=== PATIENT | female | born 1965 | race Caucasian/White ===

== ENCOUNTER 2017-01-14 15:50 | Inpatient (IN) ==
[2017-01-14] MEDS ORDERED: *HR* Midazolam HCl 5 MG/ML VIAL IVP ONE ×2 (16:13→18:30)
[2017-01-14] MEDS ORDERED: EPINEPHrine 1 MG in D5% in Water 250 ML IVC SCH (17:00)
[2017-01-14 17:08] LABS: Hematocrit 37.3 % (35.3-44.9); Hemoglobin 11.4 g/dL (11.5-15.4); Mean Corpuscular HGB Conc 30.6 g/dL (31.6-35.5); Mean Corpuscular Hemoglobin 29.8 pg (28.0-33.3); Mean Corpuscular Volume 97.6 fL (83.0-100.0); Mean Platelet Volume 8.9 fL (9.4-12.4); Platelet Count 279 K/mcL (140-400); Red Blood Count 3.82 M/mcL (3.82-4.97); Red Cell Distribution Width 12.3 % (11.5-14.5)
[2017-01-14 17:14] LABS: INR 1.1; Prothrombin Time 11.4 Seconds (9.4-12.1)
[2017-01-14 17:17] LABS: Activated Partial Thrombo Time 26.5 Seconds (26.0-36.0)
[2017-01-14 17:24] LABS: Alanine Aminotransferase 166 Units/L (0-55); Albumin 2.8 g/dL (3.5-5.0); Albumin/Globulin Ratio 0.8 (1.1-2.2); Alkaline Phosphatase 115 Units/L (38-126); Aspartate Amino Transferase 214 Units/L (5-34); BUN/Creatinine Ratio 18 (6-26); Bilirubin,Total 0.2 mg/dL (0.2-1.2); Blood Urea Nitrogen 9 mg/dL (7-20); Calcium 8.1 mg/dL (8.6-10.8); Carbon Dioxide 27 mEq/L (19-29); Chloride 98 mEq/L (98-109); Globulin 3.4 g/dL (2.4-3.5); Glucose 353 mg/dL (70-99); Osmolality,Calculated 297 (280-300); Sodium 137 mEq/L (136-145); Total Protein 6.2 g/dL (6.0-8.3); eGFR For African Americans > 60 (> 60); eGFR For Non-African Americans > 60 (> 60)
--- NOTE | 2017-01-14 17:33 | Emergency Department Note ---
Disposition Clinical Impression: Cardiac arrest Disposition: Admitted As Inpatient Condition: Critical Referrals: Deacon Hu MD [Primary Care Provider] - Forms: ED Satisfaction Letter CPR HPI - General Chief Complaint: ED Cardiac Arrest/CPR Stated Complaint: "heart" Source: EMS Nursing Notes Reviewed: Yes Vital Signs Reviewed: Yes - History of Present Illness HPI Narrative: Should arise and cardiac arrest. Per family report patient was having some difficulty breathing last night but it became much more severe today. EMS was dispatched and approximately 10 minutes prior to arrival merge department, patient with this bradycardic and unresponsive for them. Initiated CPR but no medications were administered. Upon arrival CPR was continued and epinephrine was started. After 3 rounds of epinephrine patient did have spontaneous return of circulation. There is no reported history of lung or heart problems. There is no reported history of clotting disorder. - Related Data Home Medications Medication Instructions Recorded Confirmed Alprazolam [Xanax 0.5 MG Tablet] 0.5 mg PO TID PRN 01/14/17 01/14/17 Cyanocobalamin (B-12) [Vitamin B12] mcg IM DAILY 01/14/17 Dextromethorphan HBr/Quinidine 1 each PO BID 01/14/17 01/14/17 [Nuedexta 20-10 mg Capsule] Dicyclomine [Dicyclomine HCl] 20 mg PO TID PRN 01/14/17 01/14/17 Naproxen Sodium [Anaprox Ds] 550 mg PO AD 01/14/17 01/14/17 Omeprazole [PriLOSEC] 20 mg PO DAILY 01/14/17 01/14/17 Ondansetron HCl [Zofran] 4 mg PO DAILY 01/14/17 01/14/17 Pharmanac 1 tab PO DAILY 01/14/17 01/14/17 Polyethylene Glycol 3350 17 gm PO DAILY 01/14/17 01/14/17 [Smoothlax] Riluzole [Rilutek] 50 mg PO BID 01/14/17 01/14/17 Sertraline [Zoloft] 100 mg PO DAILY 01/14/17 01/14/17 Allergies Allergy/AdvReac Type Severity Reaction Status Date / Time No Known Allergies Allergy Verified 01/14/17 18:58 Limitations: ROS unobtainable due to patients medical condition CPR PMH - Past Medical History Medical history: Reports: non-contributory, other Female Surgical history: Reports: no surgical history Psychiatric history: Reports: no psych history GY[employer] MECH[employer]IC history: Reports: non-contributory - Social History Smoking Status: Never smoker Alcohol use: Reports: none Drug use: Reports: none Physical Exam - General Limitations: altered mental status General appearance: other (Unresponsive) - Head Head exam: atraumatic - Eye Eye exam: Present: other (Pupils fixed and dilated) - ENT ENT exam: mucous membranes dry, TM's normal bilaterally - Neck Neck exam: Present: trachea midline. Absent: lymphadenopathy, thyromegaly - Chest Chest inspection: Present: other (Compressions being performed) - Respiratory Respiratory exam: Present: other (Lung sounds protect it with bagging but they are diminished) - Cardiovascular Cardiovascular exam: Present: other (No cardiac activity) - Abdominal Exam Abdominal exam: Present: soft, distention, diminished bowel sounds - Extremities Exam Extremities exam: Present: pedal edema - Back Exam Back exam: Present: other (limited) - Neurological Exam Neurological exam: Present: other (Limited Secondary to mental status) - Psychiatric Psychiatric exam: Present: other (Limited secondary to mental status) - Skin Skin exam: Present: dry, pallor Course Course Narrative: Upon arrival CPR was initiated. Patient received 3 rounds of epinephrine and compressions and had return of spontaneous circulation. Patient is receiving IV fluids and epinephrine for blood pressure and she is maintaining her circulation. Vital Signs Temperature 96.6 F L 01/14/17 15:59 Pulse Rate 144 01/14/17 15:59 Respiratory Rate 18 01/14/17 15:59 Blood Pressure 161/115 01/14/17 15:59 O2 Sat by Pulse Oximetry 99 01/14/17 15:59 Temperature 96.6 F L 01/14/17 15:59 Pulse Rate 93 01/14/17 19:10 Respiratory Rate 14 01/14/17 19:10 Blood Pressure 116/84 01/14/17 19:10 O2 Sat by Pulse Oximetry 94 01/14/17 19:10 Oxygen Delivery Oxygen Delivery Ventilator Cardiac Arrest/CPR - Differential Diagnosis Likely: acute massive pulmonary embolism, acute myocardial infraction, cardiac arrest, PEA, sudden cardiac , arrhythmia - Lab Data Lab results reviewed: Yes I reviewed the patient's lab results. Result diagrams: 01/14/17 16:56 01/14/17 16:56 Lab Results 01/14/17 01/14/17 01/14/17 Range/Units 16:56 16:56 16:56 WBC 21.6 H (4.3-11.1) K/mcL RBC 3.82 (3.82-4.97) M/mcL Hgb 11.4 L (11.5-15.4) g/dL Hct 37.3 (35.3-44.9) % MCV 97.6 (83.0-100.0) fL MCH 29.8 (28.0-33.3) pg MCHC 30.6 L (31.6-35.5) g/dL RDW 12.3 (11.5-14.5) % Plt Count 279 (140-400) K/mcL MPV 8.9 L (9.4-12.4) fL Seg Neutrophils % 80.0 % Band Neutrophils % 8.0 H (0-4) % Lymphocytes % 10.0 % Myelocytes % 2.0 H (0) % Neutrophils # 19.0 H (1.6-8.9) K/mcL Lymphocytes # 2.2 (0.6-4.6) K/mcL Toxic Granulation Present A (Not Present) PT 11.4 (9.4-12.1) Seconds INR 1.1 APTT 26.5 (26.0-36.0) Seconds ABG pH (7.32-7.45) pH Units ABG pCO2 (35-45) mmHg ABG pO2 (85-104) mmHg ABG HCO3 (21-27) mEQ/L ABG Total CO2 (20-26) mEq/L ABG O2 Saturation (95-98) % ABG Base Excess (-2.0 to 3.0) mEq/L Blood Gas Modality Inspired O2 % Sodium 137 (136-145) mEq/L Potassium 4.0 (3.5-4.5) mEq/L Chloride 98 (98-109) mEq/L Carbon Dioxide 27 (19-29) mEq/L BUN 9 (7-20) mg/dL Creatinine 0.51 L (0.57-1.11) mg/dL Est GFR ( Amer) > 60 (> 60) Est GFR (Non-Af Amer) > 60 (> 60) BUN/Creatinine Ratio 18 (6-26) Glucose 353 H (70-99) mg/dL Calculated Osmolality 297 (280-300) Lactic Acid (0.5-2.2) mmol/L Calcium 8.1 L (8.6-10.8) mg/dL Total Bilirubin 0.2 (0.2-1.2) mg/dL AST 214 H (5-34) Units/L ALT 166 H (0-55) Units/L Alkaline Phosphatase 115 (38-126) Units/L Troponin I (0-0.03) ng/mL Serum Total Protein 6.2 (6.0-8.3) g/dL Albumin 2.8 L (3.5-5.0) g/dL Globulin 3.4 (2.4-3.5) g/dL Albumin/Globulin Ratio 0.8 L (1.1-2.2) Urine Color (Yellow) Urine Clarity (Clear) Urine pH (5.0-8.0) pH Units Ur Specific Lipscomb (1.010-1.025) Urine Protein (Neg-Trace) mg/dL Urine Glucose (UA) (Normal) mg/dL Urine Ketones (Negative) mg/dL Urine Blood (Negative) Urine Nitrite (Negative) Urine Bilirubin (Negative) Urine Urobilinogen (Normal) mg/dL Ur Leukocyte Esterase (Negative) Urine Microscopic RBC (0-3) per hpf Urine Microscopic WBC (0-3) per hpf Ur Squamous Epith Cells (None-Few) per lpf Urine Bacteria (None-Few) per hpf Hyaline Casts (None-Few) per lpf Ur Culture Indicated? (NO) 01/14/17 01/14/17 01/14/17 Range/Units 16:56 16:56 17:05 WBC (4.3-11.1) K/mcL RBC (3.82-4.97) M/mcL Hgb (11.5-15.4) g/dL Hct (35.3-44.9) % MCV (83.0-100.0) fL MCH (28.0-33.3) pg MCHC (31.6-35.5) g/dL RDW (11.5-14.5) % Plt Count (140-400) K/mcL MPV (9.4-12.4) fL Seg Neutrophils % % Band Neutrophils % (0-4) % Lymphocytes % % Myelocytes % (0) % Neutrophils # (1.6-8.9) K/mcL Lymphocytes # (0.6-4.6) K/mcL Toxic Granulation (Not Present) PT (9.4-12.1) Seconds INR APTT (26.0-36.0) Seconds ABG pH (7.32-7.45) pH Units ABG pCO2 (35-45) mmHg ABG pO2 (85-104) mmHg ABG HCO3 (21-27) mEQ/L ABG Total CO2 (20-26) mEq/L ABG O2 Saturation (95-98) % ABG Base Excess (-2.0 to 3.0) mEq/L Blood Gas Modality Inspired O2 % Sodium (136-145) mEq/L Potassium (3.5-4.5) mEq/L Chloride (98-109) mEq/L Carbon Dioxide (19-29) mEq/L BUN (7-20) mg/dL Creatinine (0.57-1.11) mg/dL Est GFR ( Amer) (> 60) Est GFR (Non-Af Amer) (> 60) BUN/Creatinine Ratio (6-26) Glucose (70-99) mg/dL Calculated Osmolality (280-300) Lactic Acid 8.7 H* (0.5-2.2) mmol/L Calcium (8.6-10.8) mg/dL Total Bilirubin (0.2-1.2) mg/dL AST (5-34) Units/L ALT (0-55) Units/L Alkaline Phosphatase (38-126) Units/L Troponin I 0.01 (0-0.03) ng/mL Serum Total Protein (6.0-8.3) g/dL Albumin (3.5-5.0) g/dL Globulin (2.4-3.5) g/dL Albumin/Globulin Ratio (1.1-2.2) Urine Color Yellow (Yellow) Urine Clarity Clear (Clear) Urine pH 6.5 (5.0-8.0) pH Units Ur Specific Lipscomb 1.018 (1.010-1.025) Urine Protein 30 H (Neg-Trace) mg/dL Urine Glucose (UA) 500 H (Normal) mg/dL Urine Ketones Negative (Negative) mg/dL Urine Blood Negative (Negative) Urine Nitrite Negative (Negative) Urine Bilirubin Negative (Negative) Urine Urobilinogen Normal (Normal) mg/dL Ur Leukocyte Esterase Negative (Negative) Urine Microscopic RBC 0-3 (0-3) per hpf Urine Microscopic WBC 5-15 H (0-3) per hpf Ur Squamous Epith Cells Many H (None-Few) per lpf Urine Bacteria Few (None-Few) per hpf Hyaline Casts None Seen (None-Few) per lpf Ur Culture Indicated? YES A (NO) 01/14/17 Range/Units 18:05 WBC (4.3-11.1) K/mcL RBC (3.82-4.97) M/mcL Hgb (11.5-15.4) g/dL Hct (35.3-44.9) % MCV (83.0-100.0) fL MCH (28.0-33.3) pg MCHC (31.6-35.5) g/dL RDW (11.5-14.5) % Plt Count (140-400) K/mcL MPV (9.4-12.4) fL Seg Neutrophils % % Band Neutrophils % (0-4) % Lymphocytes % % Myelocytes % (0) % Neutrophils # (1.6-8.9) K/mcL Lymphocytes # (0.6-4.6) K/mcL Toxic Granulation (Not Present) PT (9.4-12.1) Seconds INR APTT (26.0-36.0) Seconds ABG pH 7.33 (7.32-7.45) pH Units ABG pCO2 58 H (35-45) mmHg ABG pO2 91 (85-104) mmHg ABG HCO3 30.6 H (21-27) mEQ/L ABG Total CO2 32.4 H (20-26) mEq/L ABG O2 Saturation 96 (95-98) % ABG Base Excess 3.6 H (-2.0 to 3.0) mEq/L Blood Gas Modality ASSIST CONTROL Inspired O2 100 % Sodium (136-145) mEq/L Potassium (3.5-4.5) mEq/L Chloride (98-109) mEq/L Carbon Dioxide (19-29) mEq/L BUN (7-20) mg/dL Creatinine (0.57-1.11) mg/dL Est GFR ( Amer) (> 60) Est GFR (Non-Af Amer) (> 60) BUN/Creatinine Ratio (6-26) Glucose (70-99) mg/dL Calculated Osmolality (280-300) Lactic Acid (0.5-2.2) mmol/L Calcium (8.6-10.8) mg/dL Total Bilirubin (0.2-1.2) mg/dL AST (5-34) Units/L ALT (0-55) Units/L Alkaline Phosphatase (38-126) Units/L Troponin I (0-0.03) ng/mL Serum Total Protein (6.0-8.3) g/dL Albumin (3.5-5.0) g/dL Globulin (2.4-3.5) g/dL Albumin/Globulin Ratio (1.1-2.2) Urine Color (Yellow) Urine Clarity (Clear) Urine pH (5.0-8.0) pH Units Ur Specific Lipscomb (1.010-1.025) Urine Protein (Neg-Trace) mg/dL Urine Glucose (UA) (Normal) mg/dL Urine Ketones (Negative) mg/dL Urine Blood (Negative) Urine Nitrite (Negative) Urine Bilirubin (Negative) Urine Urobilinogen (Normal) mg/dL Ur Leukocyte Esterase (Negative) Urine Microscopic RBC (0-3) per hpf Urine Microscopic WBC (0-3) per hpf Ur Squamous Epith Cells (None-Few) per lpf Urine Bacteria (None-Few) per hpf Hyaline Casts (None-Few) per lpf Ur Culture Indicated? (NO) - Radiology Data Radiology results reviewed: Yes I reviewed the patient's radiology results. Chest CTA 01/14/17 16:10 IMPRESSION: No pulmonary emboli. Scattered patchy ground-glass opacities within the upper lobes predominantly, with interlobular septal smooth thickening. There also scattered areas of patchy centrilobular pulmonary nodules, as well as extensive consolidative changes seen predominately in the lower lobes dependently as well as within the right posterior upper lobe. Some of these changes could be related to pulmonary edema, as well as possible alveolar hemorrhage. An atypical multi lobar pneumonia could also have a similar appearance. Multiple tiny foci of soft tissue gas in the base of the left neck in the supraclavicular region. Question if this may be related to attempted access. An intraosseous line is seen in the left humeral head. The endotracheal tube terminates just above the sienna, though directed towards the right mainstem bronchus. D/ / George Sparks MD / George Sparks MD Interpreting Provider: George Sparks MD Chest X-Ray 01/14/17 16:20 IMPRESSION: Endotracheal tube is low. Repositioning was discussed with the attending physician. Retraction of 2-3 cm had already been performed per physician. Perihilar airspace disease, pulmonary edema versus pneumonia or aspiration pneumonitis. Critical results were called by Dr. Fabrizio Chavez MD to Adolfo Maria on 01/14/2017 at 16:53. D/ / Fabrizio Chavez MD / Fabrizio Chavez MD Interpreting Provider: Fabrizio Chavez MD - EKG Data EKG attestation: Yes I reviewed and interpreted this EKG. EKG shows normal: sinus rhythm Rate: tachycardia Rhythm: NSR Critical Care Time Total Critical Care Time: 180 Attestation: Critical care performed: Time is exclusive of separately billable procedures. Time includes: direct patient care, patient reassessment, coordination of patient care, interpretation of data (laboratory data, radiology data, and respiratory data), review of patient's medical records, medical consultation and documentation of patient care. Procedures included in critical care time: Procedures excluded from critical care time:
[2017-01-14 17:39] LABS: Lymphocytes # 2.2 K/mcL (0.6-4.6); Toxic Granulation Present (Not Present)
[2017-01-14] MEDS: 0.9 % Sodium Chloride 1,000 ML IVC SCH (18:08)
[2017-01-14] MEDS ORDERED: *HR* Midazolam HCl 5 MG/5 ML VIAL IVP ONE (18:08)
[2017-01-14 18:15] LABS: ABG Base Excess 3.6 mEq/L (-2.0 to 3.0); ABG HCO3 30.6 mEQ/L (21-27); ABG Oxygen Saturation 96 % (95-98); ABG PCO2 58 mmHg (35-45); ABG PH 7.33 pH Units (7.32-7.45); ABG PO2 91 mmHg (85-104); ABG TCO2 32.4 mEq/L (20-26)
[2017-01-14 18:17] LABS: Blood Gas FiO2 100 %
[2017-01-14 18:19] LABS: Bilirubin,Urine Negative (Negative); Blood,Urine Negative (Negative); Clarity,Urine Clear (Clear); Color,Urine Yellow (Yellow); Glucose,Urine (UA) 500 mg/dL (Normal); Ketones,Urine Negative (Negative); Leukocyte Esterase,Urine Negative (Negative); Nitrite,Urine Negative (Negative); PH,Urine 6.5 pH Units (5.0-8.0); Protein,Urine 30 mg/dL (Neg-Trace); Specific Gravity,Urine 1.018 (1.010-1.025); Urobilinogen,Urine Normal (Normal)
[2017-01-14 18:21] LABS: Hyaline Casts,Urine None Seen per lpf (None-Few); RBC,Urine 0-3 per hpf (0-3); Squamous Epithelial Cell,Urine Many per lpf (None-Few)
[2017-01-14 18:31] LABS: Bacteria,Urine Few per hpf (None-Few)
[2017-01-14 20:20] LABS: Thyroid Stimulating Hormone 2.119 mcIU/mL (0.350-4.840)
[2017-01-14 20:33] LABS: Magnesium 1.7 mg/dL (1.6-2.6); Phosphorous 4.4 mg/dL (2.3-4.7)
[2017-01-14] MEDS ORDERED: 0.9 % Sodium Chloride 1,000 ML IVC ONE ×2 (20:33→22:39)
--- NOTE | 2017-01-14 20:33 | Internal Med History&Physical ---
<Sally Lockwood - Last Filed: 01/14/17 21:36> Date of Encounter: 01/14/17 Time of Encounter: 20:00 Assessment and Plan (1) Acute on chronic respiratory failure Current visit: Yes Status: Acute - Significant dypsnea starting one day prior to admission in the setting of 24- hour BiPAP use for worsening respiratory status over past 3 months. - Intubated in ED and currently on ventilator. - Likely secondary to aspiration pneumonia in the setting of progressive respiratory muscles failure from ALS. - Admitted to ICU for further management. - Will consult critical care and appreciate their assistance on patient care. - Will treat aspiration pneumonia with IV Zosyn and vancomycin. - Continue respiratory support with ventilator and prn bronchodilator. - Closely monitor. Qualifiers: Respiratory failure complication: unspecified whether with hypoxia or hypercapnia Qualified Code(s): J96.20 - Acute and chronic respiratory failure , unspecified whether with hypoxia or hypercapnia (2) Aspiration pneumonia Current visit: Yes Status: Acute - High risk for aspiration pneumonia given patient cannot cough due her ALS. - CTA chest showed extensive consolidative changes predominately in the lower lobes, which can be from aspiration pneumonia. - Will obtain sputum culture and blood cultures. Also check urine antigens for Legionella and S. pneumoniae. - Will start IV Zosyn & vancomycin and de-escalate later based on clinical change and culture result. Qualifiers: Aspiration pneumonia type: unspecified Laterality: bilateral Lung location: lower lobe of lung Qualified Code(s): J69.0 - Pneumonitis due to inhalation of food and vomit (3) Cardiac arrest Current visit: Yes Status: Resolved - Pulseless on arrival to ED and resuscitated after 3 rounds of CPR and epinephrine. - Likely secondary to acute respiratory failure. - Currently on epinephrine drip and will switch to norepinephrine drip given her current tachycardia. - Per patient's , patient has living will and stated she does not want resuscitation in the past. - DNR-CCA (4) Sepsis Current visit: Yes Status: Acute - WBC 21.6 with 8% band. Lactic acid elevated at 8.7. - Likely secondary to aspiration pneumonia in the setting of stress response from acute respiratory failure and cardiac arrest. - Will give 1L NS bolus and continue to maintenance fluid. - IV Zosyn and vancomycin for aspiration pneumonia. - Continue to monitor. Qualifiers: Sepsis type: sepsis due to unspecified organism Qualified Code(s): A41.9 - Sepsis, unspecified organism (5) ALS (amyotrophic lateral sclerosis) Current visit: Yes Status: Chronic - Diagnosed 6 years ago and seeing neurologist at [facility]. - Patient can only move her neck and open eyes at her baseline. - Associated progressive respiratory muscles failure. - Continue home dose Riluzole. (6) Goals of care, counseling/discussion Current visit: Yes Status: Acute - Patient is DNR-CCA. - Will consult palliative care and appreciate their assistance on patient care. (7) DVT prophylaxis Current visit: Yes Status: Acute - Calf pump for mechanical DVT prophylaxis. Internal Medicine - H&P: HPI Chief complaint: Acute on chronic respiratory failure and cardiac arrest Admitted From: Emergency Dept Plans for Post Hospital Care: Home History of present illness: Ms. Brooke is a 51 year old female with ALS. Patient is currently intubated so much of history was obtained from medical records and patient's family members at bedside. Patient was diagnosed with ALS 6 years ago and seeing neurologist at [facility]. Patient has been bedbound for years as she can only move her neck with eye opening/closing but cannot cough, talk or move other parts of body.. Patient has worsening respiratory status for past 3 months requiring almost 24-hour BiPAP. Patient's breathing got significantly worse yesterday so eventually EMS was called today. Per EMS, about 10 minutes prior to arrival to [facility], patient developed bradycardia and became unresponsive. Patient was pulseless upon arrival to ED and CPR was initiated. Patient had spontaneous return of circulation after 3 rounds of CPR and epinephrine. Patient was intubated and currently on ventilator and epinephrine drip. Per patient , no fever noted recently and no recental hospitalization except PEG tube placement in May 2016. Patient got 3-4 times of tube feeding with 8 oz can but that seems causes some abdominal discomfort recently. Patient is DNR- CCA per family. Past Med Surg Social Fam HX - Past Medical History Medical history: non-contributory, other Psychiatric history: no psych history - Past Surgical History Surgical History: no surgical history - Social History Smoking Status: Never smoker Smokeless Tobacco Status: No Alcohol use: none Drug use: none - Family History Mother Hx Family Cardiac Disorders: Yes Father Hx Family Cardiac Disorders: Yes Internal Medicine - H&P: Meds Alprazolam [Xanax 0.5 MG Tablet] 0.5 mg PO TID PRN 01/14/17 [History] Cyanocobalamin (B-12) [Vitamin B12] mcg IM DAILY 01/14/17 [History] Dextromethorphan HBr/Quinidine [Nuedexta 20-10 mg Capsule] 1 each PO BID [History] Dicyclomine [Dicyclomine HCl] 20 mg PO TID PRN 01/14/17 [History] Naproxen Sodium [Anaprox Ds] 550 mg PO AD 01/14/17 [History] Omeprazole [PriLOSEC] 20 mg PO DAILY 01/14/17 [History] Ondansetron HCl [Zofran] 4 mg PO DAILY 01/14/17 [History] Pharmanac 1 tab PO DAILY 01/14/17 [History] Polyethylene Glycol 3350 [Smoothlax] 17 gm PO DAILY 01/14/17 [History] Riluzole [Rilutek] 50 mg PO BID 01/14/17 [History] Sertraline [Zoloft] 100 mg PO DAILY 01/14/17 [History] Allergies No Known Allergies Allergy (Verified 01/14/17 18:58) ROS unobtainable: due to endotracheal tube All Systems PM: A 10-system review of systems was performed and is negative for pertinent findings except as documented above in the HPI. - Constitutional Vitals: Temp Pulse Resp BP Pulse Ox 96.6 F L 95 15 109/74 97 01/14/17 15:59 01/14/17 20:00 01/14/17 20:00 01/14/17 20:00 01/14/17 20:00 Exam: Patient is intubated but can spontaneously open her eyes. Per family, patient cannot talk and that's her baseline. - Head Head exam: Present: atraumatic, normocephalic - Eye Eye exam: Present: PERRL, conjuntiva pink, sclera anicteric - ENT Additional comments: Intubated and on ventilator. - Neck Neck exam general surgery: Present: normal inspection, supple, trachea midline - Respiratory Respiratory exam: Present: rales. Absent: rhonchi, wheezes - Cardiovascular Cardiovascular exam: Present: +S1, +S2, tachycardia. Absent: diastolic murmur, systolic murmur - GI/Abdominal GI/Abdominal exam: Present: diminished bowel sounds, soft Additional comments: PEG tube in place. - Extremities Exam Extremities exam: Present: warm, radial pulses palpable and symetrical. Absent : cyanotic, pedal edema - Neurological Exam Additional comments: Unable to fully assess given patient cannot move or answer questions. - Skin Skin exam: Present: dry, warm. Absent: rash Internal Med - H&P Results - Labs CBC & Chem 7: 01/14/17 16:56 01/14/17 16:56 <Margaret Collado - Last Filed: 01/15/17 01:00> Date of Encounter: 01/14/17 Internal Medicine - H&P: HPI History of present illness: Ms. Brooke is a 51 year old female All Systems PM: A 10-system review of systems was performed and is negative for pertinent findings except as documented above in the HPI. - Constitutional Vitals: Temp Pulse Resp BP Pulse Ox 101.0 F H 121 14 100/63 97 01/15/17 00:26 01/15/17 00:00 01/15/17 00:09 01/15/17 00:09 01/15/17 00:09 Internal Med - H&P Results - Labs CBC & Chem 7: 01/14/17 16:56 01/14/17 16:56 - Attending Attestation I performed history and physical examination of the patient and discussed management with resident/Lawn And Garden Technician. I reviewed the resident/ Interns note and agree with the documented findings and plan of care. 51 year old female with h/o ALS - Patient has been bedbound and BiPAP dependent. Patient's breathing has been worsening since yesterday so eventually EMS was called today. Per EMS, about 10 minutes prior to arrival to [facility], patient developed bradycardia and became unresponsive. Patient was pulseless upon arrival to ED and CPR was initiated. Patient had spontaneous return of circulation after 3 rounds of CPR and epinephrine. Patient was intubated and on mechanical ventilator and epinephrine drip. Pt had PEG tube placement in May 2016. Pts and pts mother at the bed side. I discussed the current clinical details and answered their questions. Per the code status is DNR CC-A; but do not want to extubate now. Wants to continue treatment at this time, but if the pt were to code no CPR. O/E: Intubated and is on mechanical ventilation. Lungs: Bilateral air entry present. Abdomen: PEG tube in place, soft. CXR and CT chest reviewed personally. I suspect bilateral lower lobe consolidation, possibly due to aspiration. Groundglass opacities in the upper lobes. EKG personally reviewed by me shows sinus tachycardia. Labs show leukocytosis with bandemia / toxic granulations. A/P: Possible Aspiration pneumonia; sepsis; acute on chronic respiratory failure ; s/p cardiac arrest: Start zosyn, vanc; pulmonary consult; continue mechanical vent; IV fluids; pressors; Pt is critically ill and critical care time spent with the pt in ICU is about 35 minutes, with more than 50% time spent in counselling and co-ordination of care.
[2017-01-14 21:04] LABS: Amphetamine Screen,Urine Negative ng/mL (Cutoff=1000); Barbiturate Screen,Urine Negative ng/mL (Cutoff=200); Benzodiazepines Screen,Urine Positive ng/mL (Cutoff=200); Cannabinoid Screen,Urine Negative ng/mL (Cutoff = 50); Cocaine Screen,Urine Negative ng/mL (Cutoff= 300); Opiate Screen,Urine Negative ng/mL (Cutoff=300); Phencyclidine Screen,Urine Negative ng/mL (Cutoff=25)
[2017-01-14] MEDS ORDERED: Naloxone 0.4 MG/ML INJ IVP PRN (21:06)
[2017-01-14] MEDS ORDERED: Norepinephrine 4 MG in D5% in Water 250 ML IVC SCH (21:30)
[2017-01-14] MEDS ORDERED: Ipratropium/Albuterol Neb 3 ML IH PRN (21:44)
[2017-01-14] MEDS ORDERED: Vancomycin 1,250 MG in D5% in Water 250 ML IVPB SCH (22:00)
[2017-01-14] MEDS ORDERED: Dexmedetomidine HCl 400 MCG/100 ML MLS IVC SCH (23:30)
[2017-01-15] MEDS: Vancomycin 1,500 MG in D5% in Water 250 ML IVPB SCH ×2 (00:04→11:23)
[2017-01-15] MEDS: *HR* Heparin 5,000 UNIT/ML VIAL SQ SCH ×2 (02:01→06:28)
[2017-01-15 03:50] LABS: Basophils % 0.1 %; Hematocrit 33.1 % (35.3-44.9); Hemoglobin 10.7 g/dL (11.5-15.4); Immature Granulocytes % 0.5 % (0-4); Lymphocytes # 0.6 K/mcL (0.6-4.6); Lymphocytes % 2.8 %; Mean Corpuscular HGB Conc 32.3 g/dL (31.6-35.5); Mean Corpuscular Hemoglobin 30.2 pg (28.0-33.3); Mean Corpuscular Volume 93.5 fL (83.0-100.0); Mean Platelet Volume 8.9 fL (9.4-12.4); Monocytes # 0.6 K/mcL (0.0-1.3); Monocytes % 2.7 %; Neutrophils # 20.2 K/mcL (1.6-8.9); Platelet Count 266 K/mcL (140-400); Red Blood Count 3.54 M/mcL (3.82-4.97); Red Cell Distribution Width 12.3 % (11.5-14.5); Segmented Neutrophils % 93.9 %
[2017-01-15 04:04] LABS: Alanine Aminotransferase 107 Units/L (0-55); Albumin 2.5 g/dL (3.5-5.0); Albumin/Globulin Ratio 0.9 (1.1-2.2); Alkaline Phosphatase 78 Units/L (38-126); Aspartate Amino Transferase 125 Units/L (5-34); BUN/Creatinine Ratio 27 (6-26); Bilirubin,Total 0.5 mg/dL (0.2-1.2); Blood Urea Nitrogen 9 mg/dL (7-20); Calcium 8.1 mg/dL (8.6-10.8); Carbon Dioxide 29 mEq/L (19-29); Chloride 102 mEq/L (98-109); Globulin 2.9 g/dL (2.4-3.5); Glucose 130 mg/dL (70-99); Magnesium 1.4 mg/dL (1.6-2.6); Osmolality,Calculated 284 (280-300); Potassium 3.3 mEq/L (3.5-4.5); Sodium 137 mEq/L (136-145); Total Protein 5.4 g/dL (6.0-8.3); eGFR For African Americans > 60 (> 60); eGFR For Non-African Americans > 60 (> 60)
[2017-01-15 04:05] LABS: Phosphorous 1.1 mg/dL (2.3-4.7)
[2017-01-15 05:53] LABS: ABG Base Excess 7.9 mEq/L (-2.0 to 3.0); ABG Oxygen Saturation 96 % (95-98); ABG PCO2 42 mmHg (35-45); ABG PH 7.49 pH Units (7.32-7.45); ABG PO2 73 mmHg (85-104); ABG TCO2 33.3 mEq/L (20-26); Blood Gas FiO2 60 %; Blood Gas PEEP 5 cm H2O; Blood Gas Respiration Rate 14; Blood Gas VT 500 cc
[2017-01-15] MEDS ORDERED: Magnesium Sulfate 2 GM in D5% in Water 100 ML IVPB ONE (05:58)
[2017-01-15] MEDS: 0.9 % Sodium Chloride 1,000 ML IVC SCH (06:16)
[2017-01-15] MEDS ORDERED: (Riluzole [Rilutek] 50 MG) PO SCH ×2 (09:00→21:00)
[2017-01-15] MEDS ORDERED: Pantoprazole 40 MG VIAL IVPB SCH (09:00)
[2017-01-15] MEDS ORDERED: *HR* EPINEPHrine 1 MG/10 ML SYRINGE IVP ONE (09:35)
--- NOTE | 2017-01-15 09:51 | Pulmonology Consult Note ---
<Shawn Corbett - Last Filed: 01/15/17 10:36> Date of Encounter: 01/15/17 Time of Encounter: 07:20 Assessment and Plan (1) Acute on chronic respiratory failure Status: Acute BiPAP dependent for the past 3 months continuously. The patient was extubated and return to BiPAP in the ICU this morning. Will continue IV Zosyn and vancomycin at this time. Suspected aspiration pneumonia with worsening ALS. There was an extensive discussion with the family including the at the bedside. The plan for this patient is to descalate care, but continue antibiotics at this time. The patient will not receive chest compressions or be reintubated. The goal is to keep the patient comfortable, but to continue care with BiPAP and antibiotics under the care of a hospitalist at this time. I discussed the case with Dr. Darby the hospitalist who understands the course of care. The patient may be changed to strictly comfort care at a later time after more discussion with the family. Qualifiers: Respiratory failure complication: hypoxia Qualified Code(s): J96.21 - Acute and chronic respiratory failure with hypoxia (2) Sepsis Status: Acute WBC's 21.5 Urine legionella antigen and strep antigen were negative. Blood and sputum cultures are pending. Will continue antibiotics at this time. Qualifiers: Sepsis type: sepsis due to unspecified organism Qualified Code(s): A41.9 - Sepsis, unspecified organism (3) Aspiration pneumonia Status: Acute Suspected, as the patient is no longer able to cough secondary to ALS. CTA of the chest demonstrated scattered patchy ground glass opacities within the upper lobes predominantly with inter lobular septal smooth thickening. There are also scattered areas of patchy central lobular pulmonary nodules as well as extensive consolidated changes seen predominantly in the lower lobes dependently as well as within the right posterior upper lobe. The patient is on zosyn and vancomycin day #1 Qualifiers: Aspiration pneumonia type: unspecified Laterality: bilateral Lung location: lower lobe of lung Qualified Code(s): J69.0 - Pneumonitis due to inhalation of food and vomit (4) ALS (amyotrophic lateral sclerosis) Status: Chronic Diagnosed 6 years ago. The patient is a quadriplegic and has respiratory failure due to muscle atrophy and weakness. Is BiPAP dependent for the past 3 months (5) DVT prophylaxis Status: Chronic On heparin SQ. Protonix for GI prophylaxis (6) Hypokalemia Status: Acute Potassium repletion has been given (7) Hypomagnesemia Status: Acute Magnesium repletion has been given History of Present Illness Consult date: 01/14/17 Requesting physician: Margaret Collado Reason for consult: other (Acute respiratory failure) Chief complaint: cardiac arrest History of present illness: This is a 51-year-old female with past medical history is significant for ALS who is diagnosed approximately 6 years ago who presented to the emergency department in cardiac arrest. She underwent 3 rounds of epinephrine and had spontaneous return of circulation at that time. The patient was intubated and had a previous living well stating DNR CCA DNI. This was discussed with the family who expressed understanding and state that at this point if she were to deteriorate again to do not wish to have compressions, shocks, or intubation. Additional history of the patient has been BiPAP depended 24 hours a day for the past 3 months. At this time she is only able to move her head. She has been excavated since her arrival to the ICU and is saturating in the high 80s on BiPAP at this time. Code status has been changed to DNR CCA DNI. Past Med Surg Social Fam HX - Past Medical History Medical history: non-contributory, other Psychiatric history: no psych history - Past Surgical History Surgical History: no surgical history - Social History Smoking Status: Never smoker Smokeless Tobacco Status: No Alcohol use: none Drug use: none - Family History Mother Hx Family Cardiac Disorders: Yes Father Hx Family Cardiac Disorders: Yes Medications and Allergies Alprazolam [Xanax 0.5 MG Tablet] 0.5 mg PO TID PRN 01/14/17 [History] Cyanocobalamin (B-12) [Vitamin B12] mcg IM DAILY 01/14/17 [History] Dextromethorphan HBr/Quinidine [Nuedexta 20-10 mg Capsule] 1 each PO BID [History] Dicyclomine [Dicyclomine HCl] 20 mg PO TID PRN 01/14/17 [History] Naproxen Sodium [Anaprox Ds] 550 mg PO AD 01/14/17 [History] Omeprazole [PriLOSEC] 20 mg PO DAILY 01/14/17 [History] Ondansetron HCl [Zofran] 4 mg PO DAILY 01/14/17 [History] Pharmanac 1 tab PO DAILY 01/14/17 [History] Polyethylene Glycol 3350 [Smoothlax] 17 gm PO DAILY 01/14/17 [History] Riluzole [Rilutek] 50 mg PO BID 01/14/17 [History] Sertraline [Zoloft] 100 mg PO DAILY 01/14/17 [History] Allergies No Known Allergies Allergy (Verified 01/14/17 18:58) ROS unobtainable: due to mental status All Systems: A 10-system review of systems was performed and is negative for pertinent findings except as documented above in the HPI. Physical Examination Vital Signs: Vital Signs, Last 4 Hours Temp Pulse Resp BP Pulse Ox 01/15/17 08:00 97.8 F 102 15 96/62 92 01/15/17 07:30 102 12 96 01/15/17 07:00 101 12 97/62 96 01/15/17 06:18 14 100/64 94 01/15/17 06:00 100 12 102/62 94 General appearance: other (The patient does not respond to verbal commands) Eyes: nonicteric ENT: oropharynx moist Effort: mildly labored, other (On BiPAP) Auscultation: bilateral: rales Cardiovascular: other (Regular rhythm, tachycardic) Gastrointestinal: normoactive bowel sounds, other (Peg tube in place) Integumentary: normal Extremities: no cyanosis other (Patient is a quadriplegic) Ventilator Settings Ventilator Settings: Ventilator Settings, Last 8 Hours Ventilator Mode A/C Ventilator Mode A/C Ventilator Mode A/C Ventilator Mode A/C Ventilator Mode A/C Ventilator Mode A/C Ventilator Mode A/C Ventilator Mode A/C Ventilator Mode A/C Ventilator Mode A/C Ventilator Mode A/C Ventilator Tidal Volume 500 Setting Ventilator Tidal Volume 500 Setting Ventilator Tidal Volume 500 Setting Ventilator Tidal Volume 500 Setting Ventilator Tidal Volume 500 Setting Ventilator Tidal Volume 500 Setting Ventilator Tidal Volume 500 Setting Ventilator Tidal Volume 500 Setting Ventilator Tidal Volume 500 Setting Ventilator Tidal Volume 500 Setting Ventilator Tidal Volume 500 Setting Ventilator Respiratory Rate 12 Setting Ventilator Respiratory Rate 12 Setting Ventilator Respiratory Rate 12 Setting Ventilator Respiratory Rate 14 Setting Ventilator Respiratory Rate 14 Setting Ventilator Respiratory Rate 14 Setting Ventilator Respiratory Rate 14 Setting Ventilator Respiratory Rate 14 Setting Ventilator Respiratory Rate 14 Setting Ventilator Respiratory Rate 14 Setting Ventilator Respiratory Rate 14 Setting Actual Respiratory Rate 15 Actual Respiratory Rate 13 Actual Respiratory Rate 12 Actual Respiratory Rate 14 Actual Respiratory Rate 14 Actual Respiratory Rate 14 Actual Respiratory Rate 14 Actual Respiratory Rate 14 Actual Respiratory Rate 14 Actual Respiratory Rate 15 Positive End Expiratory 5 Pressure Positive End Expiratory 5 Pressure Positive End Expiratory 5 Pressure Positive End Expiratory 5 Pressure Positive End Expiratory 5 Pressure Positive End Expiratory 5 Pressure Positive End Expiratory 5 Pressure Positive End Expiratory 5 Pressure Positive End Expiratory 5 Pressure Positive End Expiratory 5 Pressure Positive End Expiratory 5 Pressure Peak Inspiratory Airway 23 Pressure Peak Inspiratory Airway 27 Pressure Peak Inspiratory Airway 27 Pressure Peak Inspiratory Airway 27 Pressure Peak Inspiratory Airway 27 Pressure Peak Inspiratory Airway 27 Pressure Peak Inspiratory Airway 26 Pressure Peak Inspiratory Airway 26 Pressure Peak Inspiratory Airway 26 Pressure Peak Inspiratory Airway 25 Pressure Results - Laboratory Findings CBC and BMP: 01/15/17 03:45 01/15/17 03:45 ABG ABG pH 7.49 pH Units (7.32-7.45) H 01/15/17 05:46 ABG pCO2 42 mmHg (35-45) 01/15/17 05:46 ABG pO2 73 mmHg (85-104) L 01/15/17 05:46 ABG O2 Saturation 96 % (95-98) 01/15/17 05:46 PT/INR, D-dimer PT 11.4 Seconds (9.4-12.1) 01/14/17 16:56 Abnormal lab findings: Abnormal lab results WBC 21.5 K/mcL (4.3-11.1) H 01/15/17 03:45 RBC 3.54 M/mcL (3.82-4.97) L 01/15/17 03:45 Hgb 10.7 g/dL (11.5-15.4) L 01/15/17 03:45 Hct 33.1 % (35.3-44.9) L 01/15/17 03:45 MPV 8.9 fL (9.4-12.4) L 01/15/17 03:45 Band Neutrophils % 8.0 % (0-4) H 01/14/17 16:56 Myelocytes % 2.0 % (0) H 01/14/17 16:56 Neutrophils # 20.2 K/mcL (1.6-8.9) H 01/15/17 03:45 Toxic Granulation Present (Not Present) A 01/14/17 16:56 ABG pH 7.49 pH Units (7.32-7.45) H 01/15/17 05:46 ABG pO2 73 mmHg (85-104) L 01/15/17 05:46 ABG HCO3 32.0 mEQ/L (21-27) H 01/15/17 05:46 ABG Total CO2 33.3 mEq/L (20-26) H 01/15/17 05:46 ABG Base Excess 7.9 mEq/L (-2.0 to 3.0) H 01/15/17 05:46 Potassium 3.3 mEq/L (3.5-4.5) L 01/15/17 03:45 Creatinine 0.33 mg/dL (0.57-1.11) L 01/15/17 03:45 BUN/Creatinine Ratio 27 (6-26) H 01/15/17 03:45 Glucose 130 mg/dL (70-99) H 01/15/17 03:45 POC Glucose 133 (58-89) H 01/15/17 08:11 Lactic Acid 4.3 mmol/L (0.5-2.2) H* 01/14/17 21:54 Calcium 8.1 mg/dL (8.6-10.8) L 01/15/17 03:45 Phosphorus 1.1 mg/dL (2.3-4.7) L D 01/15/17 03:45 Magnesium 1.4 mg/dL (1.6-2.6) L 01/15/17 03:45 AST 125 Units/L (5-34) H 01/15/17 03:45 ALT 107 Units/L (0-55) H 01/15/17 03:45 C-Reactive Protein 8 mg/L (Less than 5) H 01/14/17 21:54 Serum Total Protein 5.4 g/dL (6.0-8.3) L 01/15/17 03:45 Albumin 2.5 g/dL (3.5-5.0) L 01/15/17 03:45 Albumin/Globulin Ratio 0.9 (1.1-2.2) L 01/15/17 03:45 Urine Protein 30 mg/dL (Neg-Trace) H 01/14/17 17:05 Urine Glucose (UA) 500 mg/dL (Normal) H 01/14/17 17:05 Urine Microscopic WBC 5-15 per hpf (0-3) H 01/14/17 17:05 Ur Squamous Epith Cells Many per lpf (None-Few) H 01/14/17 17:05 Ur Culture Indicated? YES (NO) A 01/14/17 17:05 U Benzodiazepines Scrn Positive ng/mL (Ivhrbo=405) H 01/14/17 17:05 - Microbiology Findings Microbiology Findings: Microbiology, Last 48 Hours 01/15/17 04:00 Sputum Culture - Preliminary Sputum - Clinical Findings Intake & Output: Intake & Output 01/14/17 01/15/17 01/15/17 23:59 07:59 15:59 Intake Total 1065.9 / 1315.9 116 / 116 Output Total 150 / 225 75 / 75 Balance 915.9 / 1090.9 41 / 41 Consult Discharge Plan - Plan Referrals: Deacon Hu MD [Primary Care Provider] - - Attending Attestation I examined this patient and my medical decision-making was reviewed with the FINAL [employer]PER[employer]OR/PA/Advanced Practice Nurse/Resident Physician. I agree with the documented findings, disposition and treatment plan as described except to the extent set forth below. <Bay Harper M - Last Filed: 01/15/17 16:26> Date of Encounter: 01/15/17 All Systems: A 10-system review of systems was performed and is negative for pertinent findings except as documented above in the HPI. Ventilator Settings Ventilator Settings: Ventilator Settings, Last 8 Hours Ventilator Mode CPAP Actual Respiratory Rate 25 Results - Laboratory Findings CBC and BMP: 01/15/17 03:45 01/15/17 03:45 ABG ABG pH 7.49 pH Units (7.32-7.45) H 01/15/17 05:46 ABG pCO2 42 mmHg (35-45) 01/15/17 05:46 ABG pO2 73 mmHg (85-104) L 01/15/17 05:46 ABG O2 Saturation 96 % (95-98) 01/15/17 05:46 PT/INR, D-dimer PT 11.4 Seconds (9.4-12.1) 01/14/17 16:56 Abnormal lab findings: Abnormal lab results WBC 21.5 K/mcL (4.3-11.1) H 01/15/17 03:45 RBC 3.54 M/mcL (3.82-4.97) L 01/15/17 03:45 Hgb 10.7 g/dL (11.5-15.4) L 01/15/17 03:45 Hct 33.1 % (35.3-44.9) L 01/15/17 03:45 MPV 8.9 fL (9.4-12.4) L 01/15/17 03:45 Band Neutrophils % 8.0 % (0-4) H 01/14/17 16:56 Myelocytes % 2.0 % (0) H 01/14/17 16:56 Neutrophils # 20.2 K/mcL (1.6-8.9) H 01/15/17 03:45 Toxic Granulation Present (Not Present) A 01/14/17 16:56 ABG pH 7.49 pH Units (7.32-7.45) H 01/15/17 05:46 ABG pO2 73 mmHg (85-104) L 01/15/17 05:46 ABG HCO3 32.0 mEQ/L (21-27) H 01/15/17 05:46 ABG Total CO2 33.3 mEq/L (20-26) H 01/15/17 05:46 ABG Base Excess 7.9 mEq/L (-2.0 to 3.0) H 01/15/17 05:46 Potassium 3.3 mEq/L (3.5-4.5) L 01/15/17 03:45 Creatinine 0.33 mg/dL (0.57-1.11) L 01/15/17 03:45 BUN/Creatinine Ratio 27 (6-26) H 01/15/17 03:45 Glucose 130 mg/dL (70-99) H 01/15/17 03:45 POC Glucose 133 (58-89) H 01/15/17 08:11 Lactic Acid 4.3 mmol/L (0.5-2.2) H* 01/14/17 21:54 Calcium 8.1 mg/dL (8.6-10.8) L 01/15/17 03:45 Phosphorus 1.1 mg/dL (2.3-4.7) L D 01/15/17 03:45 Magnesium 1.4 mg/dL (1.6-2.6) L 01/15/17 03:45 AST 125 Units/L (5-34) H 01/15/17 03:45 ALT 107 Units/L (0-55) H 01/15/17 03:45 C-Reactive Protein 8 mg/L (Less than 5) H 01/14/17 21:54 Serum Total Protein 5.4 g/dL (6.0-8.3) L 01/15/17 03:45 Albumin 2.5 g/dL (3.5-5.0) L 01/15/17 03:45 Albumin/Globulin Ratio 0.9 (1.1-2.2) L 01/15/17 03:45 Urine Protein 30 mg/dL (Neg-Trace) H 01/14/17 17:05 Urine Glucose (UA) 500 mg/dL (Normal) H 01/14/17 17:05 Urine Microscopic WBC 5-15 per hpf (0-3) H 01/14/17 17:05 Ur Squamous Epith Cells Many per lpf (None-Few) H 01/14/17 17:05 Ur Culture Indicated? YES (NO) A 01/14/17 17:05 U Benzodiazepines Scrn Positive ng/mL (Mekxqx=022) H 01/14/17 17:05 - Microbiology Findings Microbiology Findings: Microbiology, Last 48 Hours 01/15/17 04:00 Sputum Culture - Preliminary Sputum - Clinical Findings Intake & Output: Intake & Output 01/15/17 01/15/17 01/15/17 07:59 15:59 23:59 Intake Total 1065.9 / 1315.9 116 / 116 Output Total 150 / 225 75 / 75 Balance 915.9 / 1090.9 41 / 41 - Attending Attestation Patient seen and examined. Labs, radiology, chart personally reviewed. Agree with resident's history and physical, assessment, plan with following comments: This is a very unfortunate patient with advanced neuromuscular disease who was admitted to ICU with acute respiratory failure and she has been BiPAP dependent at home. After discussion with the at the bedside and also had appearance they stated patient does not want any life support and then after a short spontaneous breathing trial she was extubated to BiPAP with adjusting BiPAP setting she was getting adequate tidal volume and patient responsive to stimulation, however not able to move. Patient had tachycardia and palliative care was consulted then she was transferred to palliative care visit shortly after that she . I made with the family after her and appreciate palliative care help.
[2017-01-15] MEDS ORDERED: Ipratropium/Albuterol Neb 3 ML IH SCH ×2 (10:00→16:00)
[2017-01-15] MEDS ORDERED: *HR* Morphine 2 MG/ML SYRINGE IVP PRN ×2 (11:01→11:33)
[2017-01-15] MEDS ORDERED: *HR* LORazepam 2 MG/ML VIAL IVP PRN ×2 (11:01→11:33)
--- NOTE | 2017-01-15 11:23 | Emergency Department Note ---
Disposition Clinical Impression: Cardiac arrest Disposition: Admitted As Inpatient Condition: Critical Time of Disposition: 16:30 General Adult HPI - General Chief complaint: ED Cardiac Arrest/CPR Stated complaint: "heart" Source: EMS Limitations: altered mental status - History of Present Illness HPI Narrative: This note is for the sole purpose of a procedure note supervised by Dr. Watt during ED stay. Please see note written by Dr. Maria for remainder of HPI, Exam, ROS, and disposition. Pain Scale: 0 - Related Data Home Medications Medication Instructions Recorded Confirmed Alprazolam [Xanax 0.5 MG Tablet] 0.5 mg PO TID PRN 01/14/17 01/14/17 Cyanocobalamin (B-12) [Vitamin B12] mcg IM DAILY 01/14/17 Dextromethorphan HBr/Quinidine 1 each PO BID 01/14/17 01/14/17 [Nuedexta 20-10 mg Capsule] Dicyclomine [Dicyclomine HCl] 20 mg PO TID PRN 01/14/17 01/14/17 Naproxen Sodium [Anaprox Ds] 550 mg PO AD 01/14/17 01/14/17 Omeprazole [PriLOSEC] 20 mg PO DAILY 01/14/17 01/14/17 Ondansetron HCl [Zofran] 4 mg PO DAILY 01/14/17 01/14/17 Pharmanac 1 tab PO DAILY 01/14/17 01/14/17 Polyethylene Glycol 3350 17 gm PO DAILY 01/14/17 01/14/17 [Smoothlax] Riluzole [Rilutek] 50 mg PO BID 01/14/17 01/14/17 Sertraline [Zoloft] 100 mg PO DAILY 01/14/17 01/14/17 Allergies Allergy/AdvReac Type Severity Reaction Status Date / Time No Known Allergies Allergy Verified 01/14/17 18:58 Past Medical History - Past Medical History Medical history: Reports: non-contributory, other Surgical history: Reports: no surgical history Psychiatric history: Reports: no psych history [employer] history: Reports: non-contributory - Social History Smoking Status: Never smoker Smokeless Tobacco Status: No Alcohol use: Reports: none Drug use: Reports: none Physical Exam - General Limitations: altered mental status General appearance: other (Unresponsive) Course Vital Signs Temperature 96.6 F L 01/14/17 15:59 Pulse Rate 144 01/14/17 15:59 Respiratory Rate 18 01/14/17 15:59 Blood Pressure 161/115 01/14/17 15:59 O2 Sat by Pulse Oximetry 99 01/14/17 15:59 Temperature 97.8 F 01/15/17 08:00 Pulse Rate 126 01/15/17 11:00 Respiratory Rate 10 01/15/17 11:28 Blood Pressure 131/74 01/15/17 11:00 O2 Sat by Pulse Oximetry 94 01/15/17 11:28 Oxygen Delivery Oxygen Delivery Ventilator Procedures - Central Line Placement Right Femoral Central Line Inserted*: Yes Central Line Catheter Replacement*: No Central Line Insertion: emergent Consent Obtained: verbal consent (Emergent procedure) Procedural Pause: verify patient name and date of , timeout performed per policy, anitha and assess the site, assemble equipment and verify supplies, perform hand hygiene Patient Placed on Monitor/Pulse Ox: Yes During the Procedure: clinician is wearing sterile gloves, cap, mask,& gown during insertion, sterile field and sterile technique are maintained, patient's face is covered with drape or mask and wearing a cap, everyone in room is wearing a mask Central Line Prep: Chlorhexidine scrub, sterile drapes applied Prep the Procedure Site: apply chloraprep to the skin using a back and forth scrubbing motion, allow prep to dry, drape the patient with a full body drape Ultrasound Used for Placement: Yes Central Line Lumen Inserted: triple Post Procedure: sutured in place, good blood return, all ports aspirated, flushed, capped, sterile dressing applied, guide wire removed and visualized Post Procedure X-Ray: tip of catheter in good position Patient Tolerated Procedure: well, no complications Complications: none Name of Clinician Inserting Central Line: Dr. Rangel Clinician Assisting/Completing Checklist: Dr. Watt Date: 01/14/17 Time: 16:20 Medical Decision Making - Lab Data Result diagrams: 01/15/17 03:45 01/15/17 03:45 Lab Results 01/14/17 01/14/17 01/14/17 Range/Units 16:56 16:56 16:56 WBC 21.6 H (4.3-11.1) K/mcL RBC 3.82 (3.82-4.97) M/mcL Hgb 11.4 L (11.5-15.4) g/dL Hct 37.3 (35.3-44.9) % MCV 97.6 (83.0-100.0) fL MCH 29.8 (28.0-33.3) pg MCHC 30.6 L (31.6-35.5) g/dL RDW 12.3 (11.5-14.5) % Plt Count 279 (140-400) K/mcL MPV 8.9 L (9.4-12.4) fL Seg Neutrophils % 80.0 % Band Neutrophils % 8.0 H (0-4) % Lymphocytes % 10.0 % Myelocytes % 2.0 H (0) % Neutrophils # 19.0 H (1.6-8.9) K/mcL Lymphocytes # 2.2 (0.6-4.6) K/mcL Toxic Granulation Present A (Not Present) PT 11.4 (9.4-12.1) Seconds INR 1.1 APTT 26.5 (26.0-36.0) Seconds ABG pH (7.32-7.45) pH Units ABG pCO2 (35-45) mmHg ABG pO2 (85-104) mmHg ABG HCO3 (21-27) mEQ/L ABG Total CO2 (20-26) mEq/L ABG O2 Saturation (95-98) % ABG Base Excess (-2.0 to 3.0) mEq/L Blood Gas Modality Inspired O2 % Sodium 137 (136-145) mEq/L Potassium 4.0 (3.5-4.5) mEq/L Chloride 98 (98-109) mEq/L Carbon Dioxide 27 (19-29) mEq/L BUN 9 (7-20) mg/dL Creatinine 0.51 L (0.57-1.11) mg/dL Est GFR ( Amer) > 60 (> 60) Est GFR (Non-Af Amer) > 60 (> 60) BUN/Creatinine Ratio 18 (6-26) Glucose 353 H (70-99) mg/dL POC Glucose (58-89) Calculated Osmolality 297 (280-300) Lactic Acid (0.5-2.2) mmol/L Calcium 8.1 L (8.6-10.8) mg/dL Phosphorus 4.4 (2.3-4.7) mg/dL Magnesium 1.7 (1.6-2.6) mg/dL Total Bilirubin 0.2 (0.2-1.2) mg/dL AST 214 H (5-34) Units/L ALT 166 H (0-55) Units/L Alkaline Phosphatase 115 (38-126) Units/L Troponin I (0-0.03) ng/mL C-Reactive Protein (Less than 5) mg/L Serum Total Protein 6.2 (6.0-8.3) g/dL Albumin 2.8 L (3.5-5.0) g/dL Globulin 3.4 (2.4-3.5) g/dL Albumin/Globulin Ratio 0.8 L (1.1-2.2) TSH 2.119 (0.350-4.840) mcIU/mL Urine Color (Yellow) Urine Clarity (Clear) Urine pH (5.0-8.0) pH Units Ur Specific [place] (1.010-1.025) Urine Protein (Neg-Trace) mg/dL Urine Glucose (UA) (Normal) mg/dL Urine Ketones (Negative) mg/dL Urine Blood (Negative) Urine Nitrite (Negative) Urine Bilirubin (Negative) Urine Urobilinogen (Normal) mg/dL Ur Leukocyte Esterase (Negative) Urine Microscopic RBC (0-3) per hpf Urine Microscopic WBC (0-3) per hpf Ur Squamous Epith Cells (None-Few) per lpf Urine Bacteria (None-Few) per hpf Hyaline Casts (None-Few) per lpf Ur Culture Indicated? (NO) Urine Opiates Screen (Wcdoey=846) ng/mL Ur Barbiturates Screen (Gyqyyk=625) ng/mL Ur Phencyclidine Scrn (Cutoff=25) ng/mL Ur Amphetamines Screen (Gnzvvg=3843) ng/mL U Benzodiazepines Scrn (Pikfna=212) ng/mL Urine Cocaine Screen (Cutoff= 300) ng/mL U Marijuana (THC) Screen (Cutoff = 50) ng/mL 01/14/17 01/14/17 01/14/17 Range/Units 16:56 16:56 17:05 WBC (4.3-11.1) K/mcL RBC (3.82-4.97) M/mcL Hgb (11.5-15.4) g/dL Hct (35.3-44.9) % MCV (83.0-100.0) fL MCH (28.0-33.3) pg MCHC (31.6-35.5) g/dL RDW (11.5-14.5) % Plt Count (140-400) K/mcL MPV (9.4-12.4) fL Seg Neutrophils % % Band Neutrophils % (0-4) % Lymphocytes % % Myelocytes % (0) % Neutrophils # (1.6-8.9) K/mcL Lymphocytes # (0.6-4.6) K/mcL Toxic Granulation (Not Present) PT (9.4-12.1) Seconds INR APTT (26.0-36.0) Seconds ABG pH (7.32-7.45) pH Units ABG pCO2 (35-45) mmHg ABG pO2 (85-104) mmHg ABG HCO3 (21-27) mEQ/L ABG Total CO2 (20-26) mEq/L ABG O2 Saturation (95-98) % ABG Base Excess (-2.0 to 3.0) mEq/L Blood Gas Modality Inspired O2 % Sodium (136-145) mEq/L Potassium (3.5-4.5) mEq/L Chloride (98-109) mEq/L Carbon Dioxide (19-29) mEq/L BUN (7-20) mg/dL Creatinine (0.57-1.11) mg/dL Est GFR ( Amer) (> 60) Est GFR (Non-Af Amer) (> 60) BUN/Creatinine Ratio (6-26) Glucose (70-99) mg/dL POC Glucose (58-89) Calculated Osmolality (280-300) Lactic Acid 8.7 H* (0.5-2.2) mmol/L Calcium (8.6-10.8) mg/dL Phosphorus (2.3-4.7) mg/dL Magnesium (1.6-2.6) mg/dL Total Bilirubin (0.2-1.2) mg/dL AST (5-34) Units/L ALT (0-55) Units/L Alkaline Phosphatase (38-126) Units/L Troponin I 0.01 (0-0.03) ng/mL C-Reactive Protein (Less than 5) mg/L Serum Total Protein (6.0-8.3) g/dL Albumin (3.5-5.0) g/dL Globulin (2.4-3.5) g/dL Albumin/Globulin Ratio (1.1-2.2) TSH (0.350-4.840) mcIU/mL Urine Color Yellow (Yellow) Urine Clarity Clear (Clear) Urine pH 6.5 (5.0-8.0) pH Units Ur Specific [place] 1.018 (1.010-1.025) Urine Protein 30 H (Neg-Trace) mg/dL Urine Glucose (UA) 500 H (Normal) mg/dL Urine Ketones Negative (Negative) mg/dL Urine Blood Negative (Negative) Urine Nitrite Negative (Negative) Urine Bilirubin Negative (Negative) Urine Urobilinogen Normal (Normal) mg/dL Ur Leukocyte Esterase Negative (Negative) Urine Microscopic RBC 0-3 (0-3) per hpf Urine Microscopic WBC 5-15 H (0-3) per hpf Ur Squamous Epith Cells Many H (None-Few) per lpf Urine Bacteria Few (None-Few) per hpf Hyaline Casts None Seen (None-Few) per lpf Ur Culture Indicated? YES A (NO) Urine Opiates Screen (Snnnks=060) ng/mL Ur Barbiturates Screen (Smjezi=860) ng/mL Ur Phencyclidine Scrn (Cutoff=25) ng/mL Ur Amphetamines Screen (Fwmepv=9118) ng/mL U Benzodiazepines Scrn (Bkrdmt=132) ng/mL Urine Cocaine Screen (Cutoff= 300) ng/mL U Marijuana (THC) Screen (Cutoff = 50) ng/mL 01/14/17 01/14/17 01/14/17 Range/Units 17:05 18:05 21:03 WBC (4.3-11.1) K/mcL RBC (3.82-4.97) M/mcL Hgb (11.5-15.4) g/dL Hct (35.3-44.9) % MCV (83.0-100.0) fL MCH (28.0-33.3) pg MCHC (31.6-35.5) g/dL RDW (11.5-14.5) % Plt Count (140-400) K/mcL MPV (9.4-12.4) fL Seg Neutrophils % % Band Neutrophils % (0-4) % Lymphocytes % % Myelocytes % (0) % Neutrophils # (1.6-8.9) K/mcL Lymphocytes # (0.6-4.6) K/mcL Toxic Granulation (Not Present) PT (9.4-12.1) Seconds INR APTT (26.0-36.0) Seconds ABG pH 7.33 (7.32-7.45) pH Units ABG pCO2 58 H (35-45) mmHg ABG pO2 91 (85-104) mmHg ABG HCO3 30.6 H (21-27) mEQ/L ABG Total CO2 32.4 H (20-26) mEq/L ABG O2 Saturation 96 (95-98) % ABG Base Excess 3.6 H (-2.0 to 3.0) mEq/L Blood Gas Modality ASSIST CONTROL Inspired O2 100 % Sodium (136-145) mEq/L Potassium (3.5-4.5) mEq/L Chloride (98-109) mEq/L Carbon Dioxide (19-29) mEq/L BUN (7-20) mg/dL Creatinine (0.57-1.11) mg/dL Est GFR ( Amer) (> 60) Est GFR (Non-Af Amer) (> 60) BUN/Creatinine Ratio (6-26) Glucose (70-99) mg/dL POC Glucose 246 H (58-89) Calculated Osmolality (280-300) Lactic Acid (0.5-2.2) mmol/L Calcium (8.6-10.8) mg/dL Phosphorus (2.3-4.7) mg/dL Magnesium (1.6-2.6) mg/dL Total Bilirubin (0.2-1.2) mg/dL AST (5-34) Units/L ALT (0-55) Units/L Alkaline Phosphatase (38-126) Units/L Troponin I (0-0.03) ng/mL C-Reactive Protein (Less than 5) mg/L Serum Total Protein (6.0-8.3) g/dL Albumin (3.5-5.0) g/dL Globulin (2.4-3.5) g/dL Albumin/Globulin Ratio (1.1-2.2) TSH (0.350-4.840) mcIU/mL Urine Color (Yellow) Urine Clarity (Clear) Urine pH (5.0-8.0) pH Units Ur Specific [place] (1.010-1.025) Urine Protein (Neg-Trace) mg/dL Urine Glucose (UA) (Normal) mg/dL Urine Ketones (Negative) mg/dL Urine Blood (Negative) Urine Nitrite (Negative) Urine Bilirubin (Negative) Urine Urobilinogen (Normal) mg/dL Ur Leukocyte Esterase (Negative) Urine Microscopic RBC (0-3) per hpf Urine Microscopic WBC (0-3) per hpf Ur Squamous Epith Cells (None-Few) per lpf Urine Bacteria (None-Few) per hpf Hyaline Casts (None-Few) per lpf Ur Culture Indicated? (NO) Urine Opiates Screen Negative (Enumma=926) ng/mL Ur Barbiturates Screen Negative (Ademno=138) ng/mL Ur Phencyclidine Scrn Negative (Cutoff=25) ng/mL Ur Amphetamines Screen Negative (Oiwnfh=3828) ng/mL U Benzodiazepines Scrn Positive H (Rncsxh=878) ng/mL Urine Cocaine Screen Negative (Cutoff= 300) ng/mL U Marijuana (THC) Screen Negative (Cutoff = 50) ng/mL 01/14/17 01/14/17 01/14/17 Range/Units 21:54 21:54 23:34 WBC (4.3-11.1) K/mcL RBC (3.82-4.97) M/mcL Hgb (11.5-15.4) g/dL Hct (35.3-44.9) % MCV (83.0-100.0) fL MCH (28.0-33.3) pg MCHC (31.6-35.5) g/dL RDW (11.5-14.5) % Plt Count (140-400) K/mcL MPV (9.4-12.4) fL Seg Neutrophils % % Band Neutrophils % (0-4) % Lymphocytes % % Myelocytes % (0) % Neutrophils # (1.6-8.9) K/mcL Lymphocytes # (0.6-4.6) K/mcL Toxic Granulation (Not Present) PT (9.4-12.1) Seconds INR APTT (26.0-36.0) Seconds ABG pH (7.32-7.45) pH Units ABG pCO2 (35-45) mmHg ABG pO2 (85-104) mmHg ABG HCO3 (21-27) mEQ/L ABG Total CO2 (20-26) mEq/L ABG O2 Saturation (95-98) % ABG Base Excess (-2.0 to 3.0) mEq/L Blood Gas Modality Inspired O2 % Sodium (136-145) mEq/L Potassium (3.5-4.5) mEq/L Chloride (98-109) mEq/L Carbon Dioxide (19-29) mEq/L BUN (7-20) mg/dL Creatinine (0.57-1.11) mg/dL Est GFR ( Amer) (> 60) Est GFR (Non-Af Amer) (> 60) BUN/Creatinine Ratio (6-26) Glucose (70-99) mg/dL POC Glucose 134 H (58-89) Calculated Osmolality (280-300) Lactic Acid 4.3 H* (0.5-2.2) mmol/L Calcium (8.6-10.8) mg/dL Phosphorus (2.3-4.7) mg/dL Magnesium (1.6-2.6) mg/dL Total Bilirubin (0.2-1.2) mg/dL AST (5-34) Units/L ALT (0-55) Units/L Alkaline Phosphatase (38-126) Units/L Troponin I (0-0.03) ng/mL C-Reactive Protein 8 H (Less than 5) mg/L Serum Total Protein (6.0-8.3) g/dL Albumin (3.5-5.0) g/dL Globulin (2.4-3.5) g/dL Albumin/Globulin Ratio (1.1-2.2) TSH (0.350-4.840) mcIU/mL Urine Color (Yellow) Urine Clarity (Clear) Urine pH (5.0-8.0) pH Units Ur Specific [place] (1.010-1.025) Urine Protein (Neg-Trace) mg/dL Urine Glucose (UA) (Normal) mg/dL Urine Ketones (Negative) mg/dL Urine Blood (Negative) Urine Nitrite (Negative) Urine Bilirubin (Negative) Urine Urobilinogen (Normal) mg/dL Ur Leukocyte Esterase (Negative) Urine Microscopic RBC (0-3) per hpf Urine Microscopic WBC (0-3) per hpf Ur Squamous Epith Cells (None-Few) per lpf Urine Bacteria (None-Few) per hpf Hyaline Casts (None-Few) per lpf Ur Culture Indicated? (NO) Urine Opiates Screen (Watjwk=701) ng/mL Ur Barbiturates Screen (Aiehlh=607) ng/mL Ur Phencyclidine Scrn (Cutoff=25) ng/mL Ur Amphetamines Screen (Fdbnoh=4656) ng/mL U Benzodiazepines Scrn (Wrbfsc=469) ng/mL Urine Cocaine Screen (Cutoff= 300) ng/mL U Marijuana (THC) Screen (Cutoff = 50) ng/mL Attestation Statement - Attestation Attestation: I supervised Dr. Rangel's procedure, was present for the [place] portions.
[2017-01-15] MEDS ORDERED: 0.9 % Sodium Chloride 1,000 ML IVC SCH (11:33)
[2017-01-15 11:37] VITALS: BP 131/74
[2017-01-15] MEDS ORDERED: Aminoglycoside Consult 1 EACH MC ONE (12:17)
--- NOTE | 2017-01-15 12:43 | Palliative - Consult Note ---
Date of Encounter: 01/15/17 Time of Encounter: 10:30 - Assessment and Plan (1) Dyspnea Current Visit: Yes Status: Acute Assessment and plan: Patient has been extubated to bipap, and appears to have some mild resp distress , elevated heart rate and blood pressure. Will start low dose Morphine for shortness of breath, air hunger Qualifiers: Dyspnea type: unspecified Qualified Code(s): R06.00 - Dyspnea, unspecified (2) Counseling regarding advanced care planning and goals of care Current Visit: Yes Status: Acute Assessment and plan: Discussion with pt , Pa, as well as pt mother, and 13 y/o daughter Monica. Patient's understands that she is most likely in a terminal state and will not survive hospital stay. He is asking for her to be kept comfortable. She will transition to palliative unit. Discussed at some point, we may have to d/c IV fluid and antibiotics if she is not responding to this therapy, and if her body is not tolerating the extra fluid. Will begin low dose Morphine/Ativan for comfort and monitor closely. We discussed that bipap may not be enough to support her lungs from the ALS, and that she may pass even while on the bipap. (3) ALS (amyotrophic lateral sclerosis) Current Visit: Yes Status: Chronic (4) Cardiac arrest Current Visit: Yes Status: Resolved (5) Acute on chronic respiratory failure Current Visit: Yes Status: Acute Qualifiers: Respiratory failure complication: hypoxia Qualified Code(s): J96.21 - Acute and chronic respiratory failure with hypoxia Palliative-CN HPI - Data of Consult Consult date: 01/15/17 Requesting Physician: Jessica Snow MD Primary Care Provider: Deacon Hu MD - Consult Narrative History of present illness: Ms. Brooke is a 51 year old female with little medical history until she was diagnosed with ALS 6 years ago. Patient was cared for by team at the [facility], until transferring her care to neurologist at [facility] last year, as transportation for her became a burden. at bedside providing history. He states she has been struggling with breathing over the last 3 weeks and could not tolerate being off bipap. Breathing became more labored yesterday and squad was called. She apparently arrested and ACLS was performed. She was intubated and sent to ICU. Patient's states she did have advanced directives in place. He does not feel that she would want the current level of care or being maintained on a ventilator. Code status has been changed to DNR and she will be extubated shortly to bipap. Patient minimally responsive at this time, raises eyebrows occasionally. Palliative care was consulted to assist with goals of care discussion and symptom management. CC: Jessica Snow MD Past Med Surg Social Fam HX - Past Medical History Medical history: non-contributory, other Psychiatric history: no psych history - Past Surgical History Surgical History: no surgical history - Social History Smoking Status: Never smoker Smokeless Tobacco Status: No Alcohol use: none Drug use: none - Family History Mother Hx Family Cardiac Disorders: Yes Father Hx Family Cardiac Disorders: Yes Medications and Allergies Alprazolam [Xanax 0.5 MG Tablet] 0.5 mg PO TID PRN 01/14/17 [History] Cyanocobalamin (B-12) [Vitamin B12] mcg IM DAILY 01/14/17 [History] Dextromethorphan HBr/Quinidine [Nuedexta 20-10 mg Capsule] 1 each PO BID [History] Dicyclomine [Dicyclomine HCl] 20 mg PO TID PRN 01/14/17 [History] Naproxen Sodium [Anaprox Ds] 550 mg PO AD 01/14/17 [History] Omeprazole [PriLOSEC] 20 mg PO DAILY 01/14/17 [History] Ondansetron HCl [Zofran] 4 mg PO DAILY 01/14/17 [History] Pharmanac 1 tab PO DAILY 01/14/17 [History] Polyethylene Glycol 3350 [Smoothlax] 17 gm PO DAILY 01/14/17 [History] Riluzole [Rilutek] 50 mg PO BID 01/14/17 [History] Sertraline [Zoloft] 100 mg PO DAILY 01/14/17 [History] Allergies No Known Allergies Allergy (Verified 01/14/17 18:58) ROS unobtainable: due to endotracheal tube Palliative Care-Exam - Constitutional Vitals: Temp Pulse Resp BP Pulse Ox 97.8 F 126 10 131/74 94 01/15/17 08:00 01/15/17 11:00 01/15/17 11:28 01/15/17 11:00 01/15/17 11:28 General appearance: Present: no acute distress - Head Head Exam: Present: normal inspection, normocephalic - Eye Eye exam: Present: normal appearance, PERRL - Respiratory Respiratory exam: Present: decreased breath sounds - Cardiovascular Cardiovascular exam: Present: +S1, +S2, tachycardia - GI/Abdominal Exam GI/Abdominal exam: Present: normal bowel sounds, soft additional comments: PEG intact and clamped - Catheter Type: Urethral (Marti) - Extremities Exam Extremities exam: Present: normal capillary refill, normal inspection - Neurological Exam Additional comments: Patient minimally responsive - Skin Skin exam: Present: diaphoretic, pallor, warm Internal Medicine - CN: Reslt - Labs CBC & Chem 7: 01/15/17 03:45 01/15/17 03:45 Labs: Short CBC 01/15/17 Range/Units 03:45 WBC 21.5 H (4.3-11.1) K/mcL Hgb 10.7 L (11.5-15.4) g/dL Hct 33.1 L (35.3-44.9) % Plt Count 266 (140-400) K/mcL Neutrophils # 20.2 H (1.6-8.9) K/mcL BMP 01/15/17 03:45 Sodium 137 Potassium 3.3 L Chloride 102 Carbon Dioxide 29 BUN 9 Creatinine 0.33 L Glucose 130 H Calcium 8.1 L Liver Function 01/15/17 Range/Units 03:45 Total Bilirubin 0.5 (0.2-1.2) mg/dL AST 125 H (5-34) Units/L ALT 107 H (0-55) Units/L Alkaline Phosphatase 78 (38-126) Units/L Albumin 2.5 L (3.5-5.0) g/dL - ABG Interpretation ABG results: ABG ABG pH 7.49 pH Units (7.32-7.45) H 01/15/17 05:46 ABG pCO2 42 mmHg (35-45) 01/15/17 05:46 ABG pO2 73 mmHg (85-104) L 01/15/17 05:46 ABG O2 Saturation 96 % (95-98) 01/15/17 05:46 PT/INR, D-dimer PT 11.4 Seconds (9.4-12.1) 01/14/17 16:56 - Impressions Impressions Chest X-Ray 01/15/17 04:43 IMPRESSION: Interval development of bilateral lower lobe airspace opacifications which could represent edema or infiltrates. Interval development of bilateral pleural effusions. D/ 01/15/2017 07:50:51 Marina Ngo MD / shira Interpreting Provider: Marina Ngo MD Consult Discharge Plan - Plan Referrals: Deacon Hu MD [Primary Care Provider] - Palliative Quality Palliative Quality: Screen for Code Status: Yes, Screen for Goals of Care: Yes, Screen for Pain: Yes, If Pain Regimen Started, Initiate Bowel Regimen: NA, Screen for Nausea/Vomitting: NA Code Status: 01/14/17 21:26 CODE [Resuscitation Status: Active] [RES] Routine Comment: Resuscitation Status: [id number]
--- NOTE | 2017-01-15 12:53 | Death Note ---
Discharge Sum: Summary - Date and Time Date of admission: 01/15/17 02:02 Date of : 01/15/17 Time of : 12:18 - Summary Details: Patient with 6 yr history of ALS was admitted with cardiac arrest, respiratory failure. She was intubated and admitted to ICU. Upon discussion with family, they did not think continuing life support was consistent with her goals of care and desired extubation. She was extubated to bipap, however, within a few hours, did decline and shortly after transfer out of ICU. Dr. Bay Harper notified. - Additional Data Confirmation of as documented by pronouncing clinician: no pulse, no respirations, no heart sounds Family: at bedside Additional persons at bedside: carlitos Attending/PCP notified?: Yes Attending physician: Jessica Snow MD Was code activated?: No Organ bank notified?: Yes Advance directives: Yes Hospice patient?: No Discharge Sum: Diag - PCOD Probable Cause of : Respiratory arrest Discharge Sum: Prov - Provider Primary care physician: Deacon Hu MD Pronouncing clinician: Bay Harper
[2017-01-15] MEDS ORDERED: *HR* Heparin 5,000 UNIT/ML VIAL SQ SCH (14:00)
[2017-01-15] MEDS ORDERED: Piperacillin/Tazobactam 3.375 GM in D5% in Water (Mini-Bag+) 100 ML IVPB SCH ×3 (21:48)
[2017-01-15] MEDS ORDERED: Vancomycin 1,500 MG in D5% in Water 250 ML IVPB SCH (23:00)
[2017-01-16] MEDS ORDERED: Pantoprazole 40 MG VIAL IVP SCH (09:00)
== END 2017-01-15 12:18 | disposition expired | DRG 871 ==
LOC: EMEROO 15:50 → ICNU 15:50 → 2ANU 01-15 12:08
PROVIDERS: ADMIT Internal Medicine; ATTEND Internal Medicine